=== PATIENT | male | born 1980 | race Caucasian/White ===

== ENCOUNTER 2018-01-09 06:50 | Emergency (ER) | payer OTHER ==
[~2018-01-09] VITALS: Ht 182.9 cm; Wt 81.6 kg
--- NOTE | 2018-01-09 07:07 | NUR ---
PT A/OX4, RESPONSIVE TO VERBAL AND TACTILE STIMULI. PT C/O R FLANK PAIN THAT STARTED AT 0300 TODAY, NO PROVOKING FACTOR, DULL IN QUALITY, DOES NOT RADIATE, /, INTERMITTENT. PT DENIES CVA TENDERNESS, DENIES N/V, DENIES DYSURIA/HEMATURIA. PT DENIES C/P, SOB, HEADACHE, DIZZINESS. PT SELF-AMBULATED WITHOUT DIFFICULTY.
--- NOTE | 2018-01-09 07:09 | NUR ---
MARCO DA SILVA AT BEDSIDE.
--- NOTE | 2018-01-09 07:17 | NUR ---
SHIFT REPORT GIVEN TO RUSTAM ROMO.
[2018-01-09 07:28] LABS: *BILIRUBIN,URIN NEGATIVE (NEGATIVE); *BLOOD, URINE NEGATIVE (NEGATIVE); *CLARITY,URINE CLEAR (CLEAR); *COLOR,URINE YELLOW (YELLOW); *KETONES,URINE 1+ (NEGATIVE); *PROTEIN,URINE NEGATIVE (NEGATIVE); *UROBILINOGEN,URINE 0.2 E.U./dl (NORMAL); LEUKOCYTE ESTERASE ,URINE NEGATIVE (NEGATIVE); NITRITE, URINE NEGATIVE (NEGATIVE); UGLUCOSE NEGATIVE (NEGATIVE)
[2018-01-09] MEDS ORDERED: KETOROLAC TROMETHAMINE 30 MG INJ IVP ONE (07:30)
[2018-01-09] MEDS ORDERED: ONDANSETRON 4 MG/2 ML VIAL IV ONE (07:30)
[2018-01-09] MEDS ORDERED: IV NORMAL SALINE 1000 ML BAG IV ONE (07:30)
[2018-01-09 07:31] LABS: BACTERIA,URINE FEW /HPF (NONE SEEN); MUCUS,URINE FEW /LPF (0-FEW); RBC,URINE NONE SEEN /HPF (0-3); SQUAMOUS EPITHELIAL CELL,UR FEW /HPF (NONE SEEN); WBC,URINE 0-3 /HPF (0-3)
--- NOTE | 2018-01-09 07:40 | NUR ---
RECEIVED PATIENT REPORT FROM MARIANGEL EASTON INSPECTOR [employer]. PATIENT CURRENTLY BEING SEEN BY DOCTOR LEONARD AT THIS TIME.
[2018-01-09 07:41] LABS: BASOPHILS # (AUTO) 0.1 K/uL (0.0-8.0); BASOPHILS % (AUTO) 0.9 % (0.0-2.0); EOSINOPHILS # (AUTO) 0.2 K/uL (0.0-0.7); EOSINOPHILS % (AUTO) 2.9 % (0.0-7.0); HEMATOCRIT 46.9 % (36.7-47.1); HEMOGLOBIN 16.5 g/dL (12.5-16.3); LYMPHOCYTES % (AUTO) 35.7 % (20.5-51.5); MEAN CORPUSCULAR HEMOGLOBIN 33.3 uug (23.8-33.4); MEAN CORPUSCULAR HGB CONC 35 g/dL (32.5-36.3); MEAN CORPUSCULAR VOLUME 94.6 fL (73.0-96.2); MONOCYTES # (AUTO) 0.4 K/uL (2.0-10.0); MONOCYTES % (AUTO) 6.3 % (0.0-11.0); NEUTROPHILS % (AUTO) 54.2 % (38.5-71.5); PLATELET COUNT (AUTO) 171 K/uL (152-348); RED BLOOD CELL COUNT(AUTO) 4.96 MIL/uL (4.06-5.63); WHITE BLOOD COUNT (AUTO) 5.6 K/uL (3.6-10.2)
[2018-01-09] MEDS ORDERED: ONDANSETRON 4 MG/2 ML VIAL ONE (07:43)
[2018-01-09] MEDS ORDERED: KETOROLAC TROMETHAMINE 30 MG INJ ONE (07:43)
[2018-01-09 07:47] LABS: CREATININE 0.9 mg/dL (0.6-1.3); POTASSIUM 4.2 mmol/L (3.5-5.1)
--- NOTE | 2018-01-09 08:19 | NUR ---
DOCTOR LEONARD FOLLOWED UP WITH PATIENT REGARDING LAB RESULTS. STILL WAITING FOR ONE MORE TEST US.
--- NOTE | 2018-01-09 08:21 | NUR ---
WEDDING PLANNER AT BEDSIDE.
--- NOTE | 2018-01-09 09:18 | NUR ---
DOCTOR LEONARD REVIEWED RESULTS AND INFORMED PATIENT. GIVEN PATIENT DISCHARGE INSTRUCTIONS AND PRESCRIPTIONS.
== END 2018-01-09 09:43 | disposition home or self-care (01) ==
LOC: ER 07:00
DX: N20.0 Calculus of kidney (principal); M54.5 Low back pain
CPT/HCPCS: 36415; 76770; 80048; 81001; 85025; 96374; 96375; 99285; J1885; J2405; A4663

== ENCOUNTER 2020-11-17 01:27 | Emergency (ER) | payer BC ==
[~2020-11-17] VITALS: Ht 182.9 cm; Wt 83.9 kg
--- NOTE | 2020-11-17 01:35 | NUR ---
Dr. Jackson at bedside for MSE.
[2020-11-17] MEDS ORDERED: LORAZEPAM 2 MG/1 ML VIAL IV ONE (01:45)
[2020-11-17] MEDS ORDERED: HYDROMORPHONE 1 MG/1 ML DISP.SYRIN IV ONE ×2 (01:45→02:30)
[2020-11-17] MEDS ORDERED: ONDANSETRON 4 MG/2 ML VIAL IV ONE (01:45)
[2020-11-17] MEDS ORDERED: ONDANSETRON 4 MG/2 ML VIAL ONE (01:58)
[2020-11-17] MEDS ORDERED: LORAZEPAM 2 MG/1 ML VIAL ONE (02:00)
[2020-11-17] MEDS ORDERED: HYDROMORPHONE 1 MG/1 ML DISP.SYRIN ONE ×2 (02:00→02:36)
[2020-11-17] MEDS ORDERED: ONDA4TAB5 PO (02:56)
[2020-11-17] MEDS ORDERED: HYDR-4209 PO (02:56)
--- NOTE | 2020-11-17 06:33 | NUR ---
Patient discharged to home in stable condition. Written and verbal after care instructions given. Patient verbalizes understanding of instructions. Stressed follow up or return to ER for worsening s/s. Patient out of ER with steady gait, no acute signs of distress, VSS, all belongings taken, IV site discontinued, instructed not to drive, pt will uber home.
[2020-11-17 06:34] VITALS: BP 125/72
== END 2020-11-17 06:35 | disposition home or self-care (01) ==
LOC: ER 01:31
DX: M54.2 Cervicalgia (principal); R20.2 Paresthesia of skin; Z84.1 Family history of disorders of kidney and ureter
CPT/HCPCS: 96374; 96375; 96376; 99284; J1170 ×2; J2060; J2405; A4663